=== PATIENT | female | born 1935 | race Caucasian/White ===

== ENCOUNTER → 2018-02-28 | Outpatient (CLI) | payer MEDICARE ==
--- NOTE | 2018-02-28 16:22 | RADIOLOGY REPORT (SQ) ---
EXAM DESCRIPTION: U/S RETROPERITON LTD COMPLETED DATE/TIME: 02/28/2018 4:14 pm REASON FOR STUDY: CHRONIC KIDNEY DISEASE, STAGE 3 (MODERATE) N18.3 CHRONIC KIDNEY DISEASE, STAGE 3 (MODERATE) COMPARISON: None. TECHNIQUE: Dynamic and static grayscale images acquired of the kidneys and bladder and recorded on P ACS. Additional selected color Doppler and spectral images recorded. LIMITATIONS: None. FINDINGS: RIGHT KIDNEY: Normal size. Normal echogenicity. No solid or suspicious masses. No h ydronephrosis. No calcifications. LEFT KIDNEY: Normal size. Normal echogenicity. No solid or suspicious masses. No hydronephrosi s. No calcifications. BLADDER: No masses. OTHER FINDINGS: No other significant finding. IMPRESSION: NORMAL RENAL AND BLADDER ULTRASOUND. TECHNICAL DOCUMENTATION: JOB ID: [id number] [employer]- All Rights Reserved Reading location - IP/workstation name: [email or web address]
== END ==
LOC: RAD 15:10
PROVIDERS: ATTEND Internal Medicine Nephrology
DX: N18.3 Chronic kidney disease, stage 3 (moderate) (principal)
CPT/HCPCS: 76775

== ENCOUNTER → 2018-03-16 | Outpatient (CLI) | payer MEDICARE ==
[2018-03-16 17:46] LABS: ANION GAP 9 (5-19); BLOOD UREA NITROGEN 41 mg/dL (7-20); CALCIUM 10.3 mg/dL (8.4-10.2); CARBON DIOXIDE 25 mmol/L (22-30); CHLORIDE 107 mmol/L (98-107); GLUCOSE 89 mg/dL (75-110); PHOSPHORUS 4.6 mg/dL (2.5-4.5); SODIUM 140.8 mmol/L (137-145)
[2018-03-16 18:04] LABS: POTASSIUM 6.2 mmol/L (3.6-5.0)
[2018-03-18 14:38] LABS: CREATININE URINE 105.5 mg/dL (Not Estab.); MICROALBUMIN URINE 3.4 ug/mL (Not Estab.)
== END ==
LOC: OD 16:43
PROVIDERS: ATTEND Internal Medicine Nephrology
DX: I12.9 Hypertensive chronic kidney disease with stage 1 through stage 4 chronic kidney disease, or unspecified chronic kidney disease (principal); N18.3 Chronic kidney disease, stage 3 (moderate); E55.9 Vitamin D deficiency, unspecified; E87.5 Hyperkalemia
CPT/HCPCS: 36415; 80048; 82043; 82306; 82570; 83970; 84100

== ENCOUNTER → 2018-03-20 | Outpatient (CLI) | payer MEDICARE | LOC: OD 14:11 | PROVIDERS: ATTEND Internal Medicine Nephrology | DX: E87.5 Hyperkalemia (principal) | CPT/HCPCS: 36415; 84132 ==

== ENCOUNTER → 2018-04-05 | Outpatient (CLI) | payer MEDICARE | LOC: OD 10:04 | PROVIDERS: ATTEND Internal Medicine Nephrology | DX: E87.5 Hyperkalemia (principal) | CPT/HCPCS: 36415; 84132 ==

== ENCOUNTER → 2018-10-10 | Outpatient (CLI) | payer MEDICARE ==
[2018-10-10 12:54] LABS: ANION GAP 8 (5-19); BLOOD UREA NITROGEN 39 mg/dL (7-20); CALCIUM 10.2 mg/dL (8.4-10.2); CARBON DIOXIDE 25 mmol/L (22-30); CHLORIDE 108 mmol/L (98-107); GLUCOSE 88 mg/dL (75-110); POTASSIUM 5.1 mmol/L (3.6-5.0); SODIUM 140.6 mmol/L (137-145)
== END ==
LOC: OD 11:11
PROVIDERS: ATTEND Internal Medicine Nephrology
DX: N18.3 Chronic kidney disease, stage 3 (moderate) (principal); E55.9 Vitamin D deficiency, unspecified
CPT/HCPCS: 36415; 80048; 82306

== ENCOUNTER 2019-02-06 11:39 | Observation (INO) | payer MEDICARE ==
--- NOTE | 2019-02-06 12:10 | ER Document Report ---
ED Medical Screen (RME) - General Chief Complaint: Dizziness Stated Complaint: DIZZINESS Time Seen by Provider: 02/06/19 12:08 Primary Care Provider: RUPAL MILLS MD [Primary Care Provider] - Follow up as needed Mode of Arrival: Wheelchair Information source: Patient Notes: 83-year-old female presented to ED for complaint of feeling weak and dizzy with some lymphadenopathy anterior cervical chain. She has a history of high blood pressure arthritis deep vein thrombosis colonoscopy and endoscopy. She does not have any history of any strokes or seizures. She is here with her . She is a former smoker does not smoke at this time does drink socially no drugs and does not work she is 83 years old. She is able to answer all questions appropriately I have greeted and performed a rapid initial assessment of this patient. A comprehensive ED assessment and evaluation of the patient, analysis of test results and completion of medical decision making process will be conducted by an additional ED providers. TRAVEL OUTSIDE OF THE [place] IN LAST 30 DAYS: No - Related Data Allergies/Adverse Reactions: No Known Allergies Allergy (Verified 12/18/13 08:38) Past Medical History - Past Medical History Cardiac Medical History: Reports: Hx Hypertension - ON MEDS Denies: Hx Heart Attack Pulmonary Medical History: Denies: Hx Asthma, Hx Tuberculosis Neurological Medical History: Denies: Hx Cerebrovascular Accident, Hx Seizures Renal/ Medical History: Denies: Hx Peritoneal Dialysis GI Medical History: Denies: Hx Hepatitis, Hx Hiatal Hernia, Hx Ulcer Psychiatric Medical History: Denies: Hx Depression Infectious Medical History: Denies: Hx Hepatitis Past Surgical History: Reports: Hx Orthopedic Surgery - bilateral hips. Denies: Hx Mastectomy, Hx Open Heart Surgery, Hx Pacemaker - Immunizations Hx Diphtheria, Pertussis, Tetanus Vaccination: Yes Physical Exam - Vital signs Vitals: Temp Pulse Resp BP Pulse Ox 97.7 F 76 17 128/57 H 91 L 02/06/19 11:57 02/06/19 11:57 02/06/19 11:57 02/06/19 11:57 02/06/19 11:57 Course - Vital Signs Vital signs: Temp Pulse Resp BP Pulse Ox 97.7 F 76 17 128/57 H 91 L 02/06/19 11:57 02/06/19 11:57 02/06/19 11:57 02/06/19 11:57 02/06/19 11:57 Doctor's Discharge - Discharge Referrals: RUPAL MILLS MD [Primary Care Provider] - Follow up as needed
[2019-02-06 13:05] LABS: ABSOLUTE EOSINOPHILS # (AUTO) 0.1 10^3/uL (0.0-0.6); ABSOLUTE LYMPHOCYTES (AUTO) 0.7 10^3/uL (0.5-4.7); ABSOLUTE MONOCYTES (AUTO) 0.6 10^3/uL (0.1-1.4); ABSOLUTE NEUT (AUTO) 7.6 10^3/uL (1.7-8.2); BASOPHILS % (AUTO) 0.5 % (0-2); EOSINOPHILS % (AUTO) 0.7 % (0-6); HEMATOCRIT 38.7 % (36.0-47.0); HEMOGLOBIN 13.1 g/dL (12.0-15.5); LYMPHOCYTES % (AUTO) 7.9 % (13-45); MEAN CORPUSCULAR HEMOGLOBIN 33.4 pg (27.0-33.4); MEAN CORPUSCULAR HGB CONC 33.8 g/dL (32.0-36.0); MEAN CORPUSCULAR VOLUME 99 fl (80-97); PLATELET COUNT 203 10^3/uL (150-450); RED CELL DISTRIBUTION WIDTH 13.7 % (11.5-14.0); SEGMENTED NEUTROPHILS % (AUTO) 83.9 % (42-78); TOTAL CELLS COUNTED % (AUTO) 100 %
[2019-02-06 13:24] LABS: ALANINE AMINOTRANSFERASE 35 U/L (9-52); ALBUMIN 3.9 g/dL (3.5-5.0); ALKALINE PHOSPHATASE 72 U/L (38-126); ANION GAP 8 (5-19); ASPARTATE AMINO TRANSFERASE 34 U/L (14-36); BILIRUBIN,DIRECT 0.2 mg/dL (0.0-0.4); BILIRUBIN,TOTAL 1.2 mg/dL (0.2-1.3); BLOOD UREA NITROGEN 37 mg/dL (7-20); CALCIUM 10.1 mg/dL (8.4-10.2); CARBON DIOXIDE 27 mmol/L (22-30); CHLORIDE 107 mmol/L (98-107); GLUCOSE 119 mg/dL (75-110); POTASSIUM 5.1 mmol/L (3.6-5.0); SODIUM 141.6 mmol/L (137-145); TOTAL PROTEIN 6.4 g/dL (6.3-8.2)
[2019-02-06 13:35] LABS: CREATINE KINASE MB 1.47 ng/mL (<4.55)
--- NOTE | 2019-02-06 13:37 | RADIOLOGY REPORT (SQ) ---
EXAM DESCRIPTION: CHEST SINGLE VIEW COMPLETED DATE/TIME: 02/06/2019 1:20 pm REASON FOR STUDY: Weak and dizzy COMPARISON: AP chest 12/18/2013 EXAM PARAMETERS: NUMBER OF VIEWS: One view. TECHNIQUE: Single frontal radiographic view of the chest acquired. RADIATION DOSE: NA LIMITATIONS: None. FINDINGS: LUNGS AND PLEURA: No opacities, masses or pneumothorax. No pleural effusion. MEDIASTINUM AND HILAR STRUCTURES: No masses. Contour normal. HEART AND VASCULAR STRUCTURES: Stable mild cardiomegaly BONES: No acute findings. HARDWARE: None in the chest. OTHER: No other significant finding. IMPRESSION: NO ACUTE RADIOGRAPHIC FINDING IN THE CHEST. TECHNICAL DOCUMENTATION: JOB ID: [id number] [employer]- All Rights Reserved Reading location - IP/workstation name: [email or web address]
[2019-02-06 13:41] LABS: TROPONIN I 0.042 ng/mL
[2019-02-06 14:32] LABS: APPEARANCE,URINE SLIGHTLY-CLOUDY; BILIRUBIN,URINE NEGATIVE (NEGATIVE); COLOR,URINE YELLOW; GLUCOSE, URINE NEGATIVE (NEGATIVE); KETONES,URINE NEGATIVE (NEGATIVE); LEUKOCYTE ESTERASE,URINE TRACE (NEGATIVE); NITRITE,URINE NEGATIVE (NEGATIVE); PROTEIN,URINE NEGATIVE (NEGATIVE); URINE SPECIFIC GRAVITY 1.017; UROBILINOGEN,URINE NEGATIVE mg/dL (<2.0)
--- NOTE | 2019-02-06 14:50 | ER Document Report ---
ED General - General Chief Complaint: Dizziness Stated Complaint: DIZZINESS Time Seen by Provider: 02/06/19 12:08 Mode of Arrival: Wheelchair Notes: Patient is a 83-year-old female that presents to the emergency department for chief complaint of lightheadedness and near syncope. Patient started having symptoms this morning, when she stood up, was feeling more lightheaded, she is a poor historian does have some degree of dementia. She states that she had some nausea associated with this but no vomiting. She denies having any chest pain or shortness of breath. She has had episodes like this in the past. She denies any history of coronary artery disease, but does have diabetes and hypertension. She did take all of her blood pressure medications this morning, she is on hydrochlorothiazide as well. She states that she tries to drink plenty of fluids but cannot always keep up. No other complaints at this time, denies any pain at this time. Past Medical History: Diabetes mellitus, hypertension, osteoarthritis, dementia, history of DVT, on Xarelto Past Surgical History: Hip surgery Social History: Former smoker, denies alcohol or drug use. Family History: Reviewed and noncontributory for presenting illness Allergies: Reviewed, see documented allergy list. REVIEW OF SYSTEMS: Other than noted above, the 12 point review of systems was reviewed with the patient and were negative, all pertinent findings are included in the HPI. PHYSICAL EXAMINATION: Vital signs reviewed, nursing noted reviewed. GENERAL: Elderly female, no acute distress. HEAD: Atraumatic, normocephalic. EYES: Eyes appear normal, extraocular movements intact, sclera anicteric, conjunctiva are normal. ENT: nares patent, oropharynx clear without exudates. Moist mucous membranes. NECK: Normal range of motion, supple without lymphadenopathy LUNGS: Breath sounds clear to auscultation bilaterally and equal. No wheezes rales or rhonchi. HEART: Regular rate and rhythm without murmurs ABDOMEN: Soft, nontender, normoactive bowel sounds. No rebound, guarding, or rigidity. No masses appreciated. EXTREMITIES: Nontender, good range of motion, no pitting or edema. NEUROLOGICAL: No focal neurological deficits. Moves all extremities spontaneously Motor and sensory grossly intact on exam. PSYCH: Normal mood, normal affect. SKIN: Warm, Dry, normal turgor, no rashes or lesions noted on exposed skin TRAVEL OUTSIDE OF THE [place] IN LAST 30 DAYS: No - Related Data Allergies/Adverse Reactions: No Known Allergies Allergy (Verified 12/18/13 08:38) Past Medical History - General Information source: Patient - Social History Smoking Status: Former Smoker Family History: Reviewed & Not Pertinent Patient has suicidal ideation: No Patient has homicidal ideation: No - Past Medical History Cardiac Medical History: Reports: Hx Hypertension - ON MEDS Denies: Hx Heart Attack Pulmonary Medical History: Denies: Hx Asthma, Hx Tuberculosis Neurological Medical History: Denies: Hx Cerebrovascular Accident, Hx Seizures Renal/ Medical History: Denies: Hx Peritoneal Dialysis GI Medical History: Denies: Hx Hepatitis, Hx Hiatal Hernia, Hx Ulcer Psychiatric Medical History: Denies: Hx Depression Infectious Medical History: Denies: Hx Hepatitis Past Surgical History: Reports: Hx Orthopedic Surgery - bilateral hips. Denies: Hx Mastectomy, Hx Open Heart Surgery, Hx Pacemaker - Immunizations Hx Diphtheria, Pertussis, Tetanus Vaccination: Yes Hx Pneumococcal Vaccination: 12/19/13 Physical Exam - Vital signs Vitals: Temp Pulse Resp BP Pulse Ox 97.7 F 76 17 128/57 H 91 L 02/06/19 11:57 02/06/19 11:57 02/06/19 11:57 02/06/19 11:57 02/06/19 11:57 Course - Re-evaluation Re-evalutation: Patient seen and examined vital signs reviewed. Laboratory data and imaging were ordered as appropriate for the patient's presenting symptoms and complaint, with consideration of any critical or life threatening conditions that may be associated with their obtained history and exam as noted above. Patient was treated with 500 mL IV fluid bolus Results were reviewed when available and demonstrated slight elevation in her initial troponin at 0.04, they have been negative in the past, repeat was ordered 3 hours from initial and did go up to 0.11, I do not suspect type I NSTEMI in this patient as she has no chest pain at all and her EKG does not demonstrating any concerning signs for acute ischemia. However it was trending upward, and I feel that the patient should be admitted to the hospital and seen by cardiology for further evaluation. The patient was re-evaluated and was stable, had no complaints Evaluation was most consistent with near syncope, elevated troponin Results were discussed with the patient at this point after careful consideration I feel that that patient should be admitted to the hospital. This was discussed with the patient that it is in the best interest for their care to be admitted for further evaluation and management. Patient agreed with this plan of care. A call was placed to the admitted physician, Dr. Easton who graciously accepted the patient onto their service. *Note is created using voice recognition software and may contain spelling, syntax or grammatical errors. Laboratory 02/06/19 02/06/19 02/06/19 12:48 12:48 12:48 WBC 9.0 RBC 3.90 Hgb 13.1 Hct 38.7 MCV 99 H MCH 33.4 MCHC 33.8 RDW 13.7 Plt Count 203 Seg Neutrophils % 83.9 H Lymphocytes % 7.9 L Monocytes % 7.0 Eosinophils % 0.7 Basophils % 0.5 Absolute Neutrophils 7.6 Absolute Lymphocytes 0.7 Absolute Monocytes 0.6 Absolute Eosinophils 0.1 Absolute Basophils 0.0 Sodium 141.6 Potassium 5.1 H Chloride 107 Carbon Dioxide 27 Anion Gap 8 BUN 37 H Creatinine 1.18 Est GFR ( Amer) 53 L Est GFR (Non-Af Amer) 44 L Glucose 119 H Calcium 10.1 Total Bilirubin 1.2 Direct Bilirubin 0.2 Neonat Total Bilirubin Not Reportable Neonat Direct Bilirubin Not Reportable Neonat Indirect Bili Not Reportable AST 34 ALT 35 Alkaline Phosphatase 72 CK-MB (CK-2) 1.47 Troponin I 0.042 Total Protein 6.4 Albumin 3.9 Urine Color Urine Appearance Urine pH Ur Specific [place] Urine Protein Urine Glucose (UA) Urine Ketones Urine Blood Urine Nitrite Urine Bilirubin Urine Urobilinogen Ur Leukocyte Esterase Urine WBC (Auto) Urine RBC (Auto) U Hyaline Cast (Auto) Squamous Epi Cells Auto Urine Mucus (Auto) Urine Ascorbic Acid 02/06/19 02/06/19 14:00 16:55 WBC RBC Hgb Hct MCV MCH MCHC RDW Plt Count Seg Neutrophils % Lymphocytes % Monocytes % Eosinophils % Basophils % Absolute Neutrophils Absolute Lymphocytes Absolute Monocytes Absolute Eosinophils Absolute Basophils Sodium Potassium Chloride Carbon Dioxide Anion Gap BUN Creatinine Est GFR ( Amer) Est GFR (Non-Af Amer) Glucose Calcium Total Bilirubin Direct Bilirubin Neonat Total Bilirubin Neonat Direct Bilirubin Neonat Indirect Bili AST ALT Alkaline Phosphatase CK-MB (CK-2) Troponin I 0.112 Total Protein Albumin Urine Color YELLOW Urine Appearance SLIGHTLY-CLOUDY Urine pH 5.0 Ur Specific [place] 1.017 Urine Protein NEGATIVE Urine Glucose (UA) NEGATIVE Urine Ketones NEGATIVE Urine Blood NEGATIVE Urine Nitrite NEGATIVE Urine Bilirubin NEGATIVE Urine Urobilinogen NEGATIVE Ur Leukocyte Esterase TRACE H Urine WBC (Auto) 2 Urine RBC (Auto) 1 U Hyaline Cast (Auto) 10 Squamous Epi Cells Auto 3 Urine Mucus (Auto) RARE Urine Ascorbic Acid NEGATIVE Chest X-Ray 02/06/19 12:09 IMPRESSION: NO ACUTE RADIOGRAPHIC FINDING IN THE CHEST. - Vital Signs Vital signs: Temp Pulse Resp BP Pulse Ox 98.3 F 59 L 16 118/58 L 100 02/06/19 23:26 02/06/19 23:26 02/06/19 23:26 02/06/19 23:26 02/06/19 23:26 - Laboratory Result Diagrams: 02/06/19 12:48 02/06/19 12:48 Laboratory results interpreted by me: 02/06/19 02/06/19 02/06/19 12:48 12:48 14:00 MCV 99 H Seg Neutrophils % 83.9 H Lymphocytes % 7.9 L Potassium 5.1 H BUN 37 H Est GFR ( Amer) 53 L Est GFR (Non-Af Amer) 44 L Glucose 119 H Ur Leukocyte Esterase TRACE H - EKG Interpretation by Me Additional EKG results interpreted by me: EKG demonstrates sinus rhythm with a ventricular rate of 70 bpm, normal axis, QTC 461 ms, no ST elevation, this is compared to prior EKG from 12/19/2013, without significant change. Discharge - Discharge Clinical Impression: Near syncope, Elevated troponin Condition: Stable Disposition: ADMITTED INPATIENT Admitting Provider: Rustam (Hospitalist) Unit Admitted: Telemetry
[2019-02-06] MEDS ORDERED: NORMAL SALINE 500 ML IV ONE (15:13)
--- NOTE | 2019-02-06 16:38 | EKG REPORT ---
SEVERITY:- BORDERLINE ECG - SINUS RHYTHM PROBABLE LEFT ATRIAL ABNORMALITY LOW VOLTAGE IN FRONTAL LEADS : Confirmed by: Ko Gonzalez MD 06-Feb-2019 16:38:21
[2019-02-06] MEDS ORDERED: ONDANSETRON HCL INJ/PF 4 MG/2 ML SDV IV PRN (18:30)
[2019-02-06] MEDS ORDERED: ACETAMINOPHEN 325 MG TABLET PO PRN (18:30)
[2019-02-06] MEDS ORDERED: NORMAL SALINE 1000 ML 1,000 ML IV PRN (18:30)
--- NOTE | 2019-02-06 18:47 | PDOC H&P ---
History of Present Illness Admission Date/PCP: 02/06/19 18:21 RUPAL MILLS MD Patient complains of: Dizziness History of Present Illness: EUSEBIA SANDY is a 83 year old female history of hypertension, history of DVT on Xarelto, dementia on donezepil came to the emergency room with complaints of lightheadedness dizziness for the last 2 days. Denies any history of falls. Denies any blurred vision. Denies any headaches denies any nausea denies any vomitings. She has occasional constipation. Denies any cough cold denies any upper respiratory tract symptoms denies any chest pains. Work-up in the ER shows initial troponin of 0.04 and repeat troponin is 0.112 medical consult was called for possible admission. At the time of examination patient is as ymptomatic. Patient received IV fluids in the ER. Past Medical History Cardiac Medical History: Reports: Hypertension - ON MEDS Denies: Myocardial Infarction Pulmonary Medical History: Denies: Asthma, Tuberculosis Neurological Medical History: Denies: Seizures GI Medical History: Denies: Hepatitis, Hiatal Hernia Psychiatric Medical History: Denies: Depression Hematology: Denies: Anemia, Sickle Cell Disease Past Surgical History Past Surgical History: Reports: Orthopedic Surgery - bilateral hips Denies: Amputation, Mastectomy, Pacemaker Social History Information Source: Patient Lives with: Spouse/Significant other Smoking Status: Former Smoker Frequency of Alcohol Use: Occasional Hx Recreational Drug Use: No Hx Prescription Drug Abuse: No - Advance Directive Resuscitation Status: Full Code Family History Family History: Reviewed & Not Pertinent Parental Family History Reviewed: Yes - Family history of hypertension. Children Family History Reviewed: Yes Sibling(s) Family History Reviewed.: Yes Medication/Allergy Home Medications: Rivaroxaban [Xarelto 15 mg Tablet] 15 mg PO DAILY 12/18/13 Triamterene/Hydrochlorothiazid [Triamterene-Hctz 37.5-25 mg Cp] 1 each PO DAILY 12/18/13 Cholecalciferol (Vitamin D3) [Vitamin D3 1000 Unit Tablet] 1,000 unit PO DAILY 02/06/19 Donepezil HCl [Aricept] 10 mg PO QHS 02/06/19 Glucosamine HCl 3,000 mg PO QHS 02/06/19 Losartan Potassium [Cozaar 50 mg Tablet] 50 mg PO DAILY 02/06/19 Omeprazole 20 mg PO DAILYP PRN 02/06/19 Allergies/Adverse Reactions: No Known Allergies Allergy (Verified 12/18/13 08:38) Review of Systems Constitutional: ABSENT: fever(s), headache(s), weakness Eyes: ABSENT: visual disturbances Ears: ABSENT: hearing changes Nose, Mouth, and Throat: ABSENT: sore throat Cardiovascular: ABSENT: chest pain, dyspnea on exertion, edema, orthropnea, palpitations Respiratory: ABSENT: cough, hemoptysis Gastrointestinal: PRESENT: constipation. ABSENT: abdominal pain, diarrhea, hematemesis, hematochezia, nausea, vomiting Genitourinary: ABSENT: dysuria, hematuria Musculoskeletal: ABSENT: joint swelling Neurological: PRESENT: dizziness Psychiatric: ABSENT: anxiety, depression, homidical ideation, suicidal ideation Physical Exam Vital Signs: Temp Pulse Resp BP Pulse Ox 97.7 F 66 17 128/54 H 98 02/06/19 11:57 02/06/19 13:14 02/06/19 14:01 02/06/19 14:01 02/06/19 14:01 Intake & Output 02/05/19 02/06/19 02/07/19 06:59 06:59 06:59 Weight 58.4 kg General appearance: PRESENT: no acute distress Head exam: PRESENT: atraumatic Eye exam: PRESENT: PERRLA Mouth exam: PRESENT: moist, tongue midline Neck exam: ABSENT: carotid bruit, JVD, lymphadenopathy, thyromegaly Respiratory exam: PRESENT: clear to auscultation edna. ABSENT: rales, rhonchi, wheezes Cardiovascular exam: PRESENT: RRR. ABSENT: diastolic murmur, rubs, systolic murmur GI/Abdominal exam: PRESENT: normal bowel sounds, soft. ABSENT: distended, guarding, mass, organolmegaly, rebound, tenderness Rectal exam: PRESENT: deferred Extremities exam: PRESENT: full ROM. ABSENT: calf tenderness, clubbing, pedal edema Neurological exam: PRESENT: alert, awake, oriented to person, oriented to place, oriented to time, oriented to situation, CN II-XII grossly intact. ABSENT: motor sensory deficit Psychiatric exam: PRESENT: appropriate affect, normal mood. ABSENT: homicidal ideation, suicidal ideation Results Laboratory Results: 02/06/19 12:48 02/06/19 12:48 02/06/19 02/06/19 02/06/19 12:48 12:48 14:00 WBC 9.0 RBC 3.90 Hgb 13.1 Hct 38.7 MCV 99 H MCH 33.4 MCHC 33.8 RDW 13.7 Plt Count 203 Seg Neutrophils % 83.9 H Lymphocytes % 7.9 L Monocytes % 7.0 Eosinophils % 0.7 Basophils % 0.5 Absolute Neutrophils 7.6 Absolute Lymphocytes 0.7 Absolute Monocytes 0.6 Absolute Eosinophils 0.1 Absolute Basophils 0.0 Sodium 141.6 Potassium 5.1 H Chloride 107 Carbon Dioxide 27 Anion Gap 8 BUN 37 H Creatinine 1.18 Est GFR ( Amer) 53 L Est GFR (Non-Af Amer) 44 L Glucose 119 H Calcium 10.1 Total Bilirubin 1.2 AST 34 ALT 35 Alkaline Phosphatase 72 Total Protein 6.4 Albumin 3.9 Urine Color YELLOW Urine Appearance SLIGHTLY-CLOUDY Urine pH 5.0 Ur Specific [place] 1.017 Urine Protein NEGATIVE Urine Glucose (UA) NEGATIVE Urine Ketones NEGATIVE Urine Blood NEGATIVE Urine Nitrite NEGATIVE Ur Leukocyte Esterase TRACE H Urine WBC (Auto) 2 Urine RBC (Auto) 1 02/06/19 02/06/19 12:48 16:55 CK-MB (CK-2) 1.47 Troponin I 0.042 0.112 Impressions: Chest X-Ray 02/06/19 12:09 IMPRESSION: NO ACUTE RADIOGRAPHIC FINDING IN THE CHEST. Assessment and Plan - Diagnosis (1) Elevated troponin Is this a current diagnosis for this admission?: Yes Plan: 02/06/2019-patient came in with complaints of dizziness upon and was 0.042 and repeat troponin was 0.112 patient is chest pain-free. EKGs are negative for acute changes. Patient is going to be placed in the hospital under observation status. Serial cardiac enzymes EKG is going to be requested. Patient is already on Xarelto plan is to continue Xarelto. Start on aspirin 81 mg p.o. daily, atorvastatin 5 mg bedtime lipid panel was requested for tomorrow morning. Patient was placed on oxygen 2 L via nasal cannula. GI prophylaxis was requested. cause of elevated troponin is unknown at this point. She denies any chest pains. (2) Near syncope Is this a current diagnosis for this admission?: Yes Plan: 02/06/2019-patient came in with complaints of dizziness and near syncope. Plan to do the CT head without contrast. Fall precautions are requested. Patient is complaining of syncope spells when she is getting from sitting to standing position. Most likely is vasovagal syncope. Patient is started on normal saline at 50 cc/h. (3) HTN (hypertension) Is this a current diagnosis for this admission?: No Plan: 02/06/2019-patient has history of chronic hypertension blood pressure is 128/54 in the ER. Patient is on losartan and also on triamterene/hydrochlorothiazide at home. plan is to continue losartan and hold triamterene/hydrochlorothiazide. (4) DVT (deep venous thrombosis) Is this a current diagnosis for this admission?: No Plan: 02/06/2019-patient has history of DVTs on Xarelto. Plan to continue Xarelto during the hospital stay. (5) CRI (chronic renal insufficiency) Is this a current diagnosis for this admission?: No Plan: 02/06/2019-patient creatinine is 1.18 we do not have the previous creatinine available. Patient received IV fluids in the emergency room and also she was placed on normal saline at 50 cc/h plan to recheck the labs tomorrow. (6) Dementia Is this a current diagnosis for this admission?: No Plan: 02/06/2019-patient has history of dementia and on hospital at home plan is to continue the medication during the hospital stay. - Time Time Spent with patient: 25-34 minutes Medications reviewed and adjusted accordingly: Yes Anticipated discharge: Home
[2019-02-06] MEDS: ASPIRIN 81 MG TABLET, CHEWABLE PO SCH (19:30)
[2019-02-06 19:43] LABS: CREATINE KINASE MB 1.87 ng/mL (<4.55)
[2019-02-06 19:50] LABS: TROPONIN I 0.154 ng/mL
[2019-02-06] MEDS: FAMOTIDINE 20 MG TABLET PO SCH (21:36)
[2019-02-06] MEDS ORDERED: DONEPEZIL HCL 5 MG TABLET PO SCH (22:00)
[2019-02-06] MEDS ORDERED: ATORVASTATIN CALCIUM 10 MG TABLET PO SCH (22:00)
[2019-02-06] MEDS ORDERED: (PENDING PHARMACY ID) (Donepezil Hcl [Aricept] 10 MG) PO SCH (22:00)
[2019-02-07 02:08] LABS: CREATINE KINASE MB 1.87 ng/mL (<4.55)
[2019-02-07 02:11] LABS: TROPONIN I 0.204 ng/mL
--- NOTE | 2019-02-07 04:57 | RADIOLOGY REPORT (SQ) ---
EXAM: CT head without IV contrast CLINICAL DATA: syncope TECHNICAL DATA: Multiple axial CT images of the brain were performed followed by sagittal and coronal reconstructed images. The CT study is performed according to ALARA (as low as reasonably achievable) or ALARA/IMAGE GENTLY, with automatic adjustment of mA and/or kV according to patient size. Performed on: 02/06/2019 at 7:15 PM Comparisons: None. FINDINGS: There is no evidence of mass, acute mass effect or midline shift. There are no acute extra-axial fluid collections. There is no evidence of acute intracranial hemorrhage. The cerebral sulci and ventricles are prominent consistent with mild cerebral volume loss. There are scattered patchy areas of decreased subcortical and periventricular attenuation most consistent with mild chronic microangiopathy. There is no significant mucosal thickening of the paranasal sinuses. There are mild atherosclerotic calcifications along the cavernous carotid arteries. The mastoid air cells are clear. The orbital contents are grossly unremarkable. No acute osseous abnormalities are identified. No focal soft tissue abnormalities are identified. IMPRESSION: 1. There is no evidence of acute intracranial pathology. 2. Mild age-related cerebral volume loss with findings most compatible with chronic microangiopathy.
[2019-02-07 07:37] LABS: ABSOLUTE EOSINOPHILS # (AUTO) 0.2 10^3/uL (0.0-0.6); ABSOLUTE LYMPHOCYTES (AUTO) 1.1 10^3/uL (0.5-4.7); ABSOLUTE MONOCYTES (AUTO) 0.6 10^3/uL (0.1-1.4); ABSOLUTE NEUT (AUTO) 3.5 10^3/uL (1.7-8.2); BASOPHILS % (AUTO) 0.5 % (0-2); EOSINOPHILS % (AUTO) 4.1 % (0-6); HEMATOCRIT 34.8 % (36.0-47.0); HEMOGLOBIN 11.7 g/dL (12.0-15.5); MEAN CORPUSCULAR HEMOGLOBIN 33.1 pg (27.0-33.4); MEAN CORPUSCULAR HGB CONC 33.7 g/dL (32.0-36.0); MEAN CORPUSCULAR VOLUME 98 fl (80-97); RED BLOOD COUNT 3.54 10^6/uL (3.72-5.28); RED CELL DISTRIBUTION WIDTH 13.6 % (11.5-14.0); SEGMENTED NEUTROPHILS % (AUTO) 64.4 % (42-78); TOTAL CELLS COUNTED % (AUTO) 100 %; WHITE BLOOD COUNT 5.4 10^3/uL (4.0-10.5)
--- NOTE | 2019-02-07 07:44 | EKG REPORT ---
SEVERITY:- BORDERLINE ECG - SINUS RHYTHM PROBABLE LEFT ATRIAL ABNORMALITY CONSIDER ANTERIOR INFARCT : Confirmed by: Ko Gonzalez MD 07-Feb-2019 07:43:38
[2019-02-07 07:54] LABS: PLATELET COUNT 117 10^3/uL (150-450)
[2019-02-07 07:55] LABS: ALANINE AMINOTRANSFERASE 28 U/L (9-52); ALBUMIN 3.1 g/dL (3.5-5.0); ALKALINE PHOSPHATASE 56 U/L (38-126); ANION GAP 7 (5-19); ASPARTATE AMINO TRANSFERASE 29 U/L (14-36); BILIRUBIN,DIRECT 0.2 mg/dL (0.0-0.4); BILIRUBIN,TOTAL 1.1 mg/dL (0.2-1.3); BLOOD UREA NITROGEN 34 mg/dL (7-20); CALCIUM 9.5 mg/dL (8.4-10.2); CARBON DIOXIDE 25 mmol/L (22-30); CHLORIDE 109 mmol/L (98-107); CHOLESTEROL 155.36 mg/dL (0-200); CREATINE KINASE 48 U/L (30-135); GLUCOSE 95 mg/dL (75-110); POTASSIUM 4.3 mmol/L (3.6-5.0); SODIUM 140.5 mmol/L (137-145); TOTAL PROTEIN 5.4 g/dL (6.3-8.2); TRIGLYCERIDES 64 mg/dL (<150)
[2019-02-07 08:05] LABS: CREATINE KINASE MB 1.87 ng/mL (<4.55); TROPONIN I 0.166 ng/mL
[2019-02-07 08:06] LABS: DIRECT LDL 56 mg/dL (<100)
[2019-02-07] MEDS: FAMOTIDINE 20 MG TABLET PO SCH (09:45)
[2019-02-07] MEDS: ASPIRIN 81 MG TABLET, CHEWABLE PO SCH (09:45)
[2019-02-07] MEDS ORDERED: LOSARTAN POTASSIUM 50 MG TABLET PO SCH (10:00)
[2019-02-07] MEDS ORDERED: DOCUSATE SODIUM 100 MG/10 ML UDC PO SCH (10:00)
[2019-02-07] MEDS ORDERED: RIVAROXABAN 15 MG TABLET PO SCH (10:00)
[2019-02-07 11:09] VITALS: BP 117/47
--- NOTE | 2019-02-07 16:06 | PDOC DISCHARGE SUMMARY ---
General - Admit/Disc Date/PCP Admission Date/Primary Care Provider: 02/06/19 18:21 RUPAL MILLS MD Discharge Date: 02/07/19 - Discharge Diagnosis (1) Elevated troponin Is this a current diagnosis for this admission?: Yes Summary: Never had any chest pain. Troponins peaked at 0.2 and then trended down without any intervention. She has an appointment with her career development facilitator in a couple of weeks. Cardiology recommended sending her on a beta-constance instead of her other antihypertensive, which was a combination triamterene HCTZ medication. (2) Near syncope Is this a current diagnosis for this admission?: Yes Summary: From dehydration. She got some IV fluids and has not had any further episodes since. Head CT was negative. Discontinued diuretic as noted above. - Additional Information Resuscitation Status: Full Code Discharge Diet: Cardiac Discharge Activity: Activity As Tolerated Prescriptions: Metoprolol Succinate [Toprol Xl 25 mg Tab.sr] 12.5 mg PO DAILY #30 tab.sr.24h Home Medications: Rivaroxaban [Xarelto 15 mg Tablet] 15 mg PO QHS 12/18/13 Cholecalciferol (Vitamin D3) [Vitamin D3 1000 Unit Tablet] 1,000 unit PO DAILY 02/06/19 Donepezil HCl [Aricept] 10 mg PO QHS 02/06/19 Glucosamine HCl 3,000 mg PO QHS 02/06/19 Losartan Potassium [Cozaar 50 mg Tablet] 50 mg PO QHS 02/06/19 Omeprazole 20 mg PO QAM 02/06/19 Metoprolol Succinate [Toprol Xl 25 mg Tab.sr] 12.5 mg PO DAILY #30 tab.sr.24h 02/07/19 History of Present Illness History of Present Illness: EUSEBIA SANDY is a 83 year old female history of hypertension, history of DVT on Xarelto, dementia on donezepil came to the emergency room with complaints of lightheadedness dizziness for the last 2 days. Denies any history of falls. Denies any blurred vision. Denies any headaches denies any nausea denies any vomitings. She has occasional constipation. Denies any cough cold denies any upper respiratory tract symptoms denies any chest pains. Work-up in the ER shows initial troponin of 0.04 and repeat troponin is 0.112 medical consult was called for possible admission. At the time of examination patient is asymptomatic. Patient received IV fluids in the ER. Hospital Course Hospital Course: Troponins trended up to 0.2 and then began trending down without any intervention. She was taken off HCTZ and triamterene, was given some IV fluids, and has been asymptomatic. No more dizzy spells. She is never had any chest pain. No prior cardiac history. She goes to her 's career development facilitator and that person prescribes her blood pressure medicine for her. She has an appointment in a couple weeks. She was put on a low dose of a beta-constance and instead of her triamterene and HCTZ. Her labs and her examination were reassuring she was discharged in good condition. Physical Exam Vital Signs: Temp Pulse Resp BP Pulse Ox 97.8 F 61 18 117/47 L 98 02/07/19 11:07 02/07/19 11:07 02/07/19 11:07 02/07/19 11:07 02/07/19 11:07 Intake & Output 02/06/19 02/07/19 02/08/19 06:59 06:59 06:59 Intake Total 740 Balance 740 Weight 58.4 kg General appearance: PRESENT: no acute distress, cooperative, disheveled Respiratory exam: PRESENT: clear to auscultation edna, symmetrical, unlabored. ABSENT: accessory muscle use, crackles, prolonged expiratory phas, rhonchi, tachypnea, wheezes Cardiovascular exam: PRESENT: RRR, +S1, +S2 Pulses: PRESENT: normal carotid pulses Vascular exam: PRESENT: normal capillary refill GI/Abdominal exam: PRESENT: normal bowel sounds, soft. ABSENT: distended, guarding, rebound, tenderness Extremities exam: ABSENT: clubbing, pedal edema Musculoskeletal exam: PRESENT: normal inspection. ABSENT: deformity Neurological exam: PRESENT: alert, awake, oriented to person, oriented to place, oriented to time, oriented to situation Psychiatric exam: PRESENT: appropriate affect, normal mood Skin exam: PRESENT: dry, warm Results Laboratory Results: 02/07/19 07:20 02/07/19 07:20 02/07/19 02/07/19 02/07/19 07:20 07:20 07:20 WBC 5.4 RBC 3.54 L Hgb 11.7 L Hct 34.8 L MCV 98 H MCH 33.1 MCHC 33.7 RDW 13.6 Plt Count 117 L Seg Neutrophils % 64.4 Lymphocytes % 20.0 Monocytes % 11.0 Eosinophils % 4.1 Basophils % 0.5 Absolute Neutrophils 3.5 Absolute Lymphocytes 1.1 Absolute Monocytes 0.6 Absolute Eosinophils 0.2 Absolute Basophils 0.0 Sodium 140.5 Potassium 4.3 Chloride 109 H Carbon Dioxide 25 Anion Gap 7 BUN 34 H Creatinine 0.98 Est GFR ( Amer) > 60 Est GFR (Non-Af Amer) 54 L Glucose 95 Calcium 9.5 Magnesium 2.0 Total Bilirubin 1.1 AST 29 ALT 28 Alkaline Phosphatase 56 Total Protein 5.4 L Albumin 3.1 L Triglycerides 64 Cholesterol 155.36 LDL Cholesterol Direct 56 VLDL Cholesterol 13.0 HDL Cholesterol 95 TSH 1.59 02/06/19 02/06/19 02/06/19 12:48 16:55 18:50 Creatine Kinase 36 CK-MB (CK-2) 1.47 Troponin I 0.042 0.112 02/06/19 02/07/19 02/07/19 18:50 01:29 01:29 Creatine Kinase 42 CK-MB (CK-2) 1.87 1.87 Troponin I 0.154 0.204 02/07/19 02/07/19 07:20 07:20 Creatine Kinase 48 CK-MB (CK-2) 1.87 Troponin I 0.166 Impressions: Head CT 02/06/19 00:00 IMPRESSION: 1. There is no evidence of acute intracranial pathology. 2. Mild age-related cerebral volume loss with findings most compatible with chronic microangiopathy. Chest X-Ray 02/06/19 12:09 IMPRESSION: NO ACUTE RADIOGRAPHIC FINDING IN THE CHEST. Qualifiers - * PATIENT BEING DISCHARGED WITH ANY OF THE FOLLOWING DIAGNOSIS: No Acute Heart Failure Is this a Heart Failure Patient?: No Plan Time Spent: Less than 30 Minutes
== END 2019-02-07 12:09 | disposition home or self-care (01) ==
LOC: ER 11:39 → INTOOBSV 18:21 → EH 18:21 → 4N 19:52
PROVIDERS: ADMIT Internal Medicine; ATTEND Internal Medicine
DX: R79.89 Other specified abnormal findings of blood chemistry (principal); E86.0 Dehydration; R55 Syncope and collapse; F03.90 Unspecified dementia, unspecified severity, without behavioral disturbance, psychotic disturbance, mood disturbance, and anxiety; I10 Essential (primary) hypertension; Z86.718 Personal history of other venous thrombosis and embolism; Z79.01 Long term (current) use of anticoagulants; Z87.891 Personal history of nicotine dependence
CPT/HCPCS: 93005 ×2; 99285; 96360; 36415 ×2; 82553 ×2; 82550 ×2; 83735; 84443; 85025 ×2; 80053 ×2; 81001; 84484 ×2; 83036; 80061; 71045; 70450; 93010; G0378 ×3; A9270 ×8; J3490; J7040

== ENCOUNTER 2020-05-17 05:56 | Emergency (ER) | payer MEDICARE ==
[2020-05-17] MEDS ORDERED: NORMAL SALINE 250 ML IV ONE (08:00)
[2020-05-17 08:59] LABS: ABSOLUTE BASOPHILS # (AUTO) 0.1 10^3/uL (0.0-0.2); ABSOLUTE LYMPHOCYTES (AUTO) 0.9 10^3/uL (0.5-4.7); ABSOLUTE MONOCYTES (AUTO) 0.5 10^3/uL (0.1-1.4); ABSOLUTE NEUT (AUTO) 5.5 10^3/uL (1.7-8.2); EOSINOPHILS % (AUTO) 0.6 % (0-6); HEMATOCRIT 35.4 % (36.0-47.0); LYMPHOCYTES % (AUTO) 12.6 % (13-45); MEAN CORPUSCULAR HEMOGLOBIN 34.6 pg (27.0-33.4); MEAN CORPUSCULAR HGB CONC 33.8 g/dL (32.0-36.0); MEAN CORPUSCULAR VOLUME 102 fl (80-97); MONOCYTES % (AUTO) 6.7 % (3-13); PLATELET COUNT 160 10^3/uL (150-450); RED BLOOD COUNT 3.46 10^6/uL (3.72-5.28); RED CELL DISTRIBUTION WIDTH 12.7 % (11.5-14.0); SEGMENTED NEUTROPHILS % (AUTO) 79.1 % (42-78); TOTAL CELLS COUNTED % (AUTO) 100 %
[2020-05-17 09:15] LABS: BLOOD UREA NITROGEN 34 mg/dL (7-20); CALCIUM 9.4 mg/dL (8.4-10.2); GLUCOSE 91 mg/dL (75-110)
[2020-05-17 09:16] LABS: ALBUMIN 3.8 g/dL (3.5-5.0); ALKALINE PHOSPHATASE 67 U/L (38-126); ANION GAP 6 (5-19); ASPARTATE AMINO TRANSFERASE 76 U/L (14-36); BILIRUBIN,TOTAL 0.9 mg/dL (0.2-1.3); CARBON DIOXIDE 27 mmol/L (22-30); CHLORIDE 106 mmol/L (98-107); POTASSIUM 4.8 mmol/L (3.6-5.0); TOTAL PROTEIN 6.1 g/dL (6.3-8.2)
--- NOTE | 2020-05-17 09:16 | RADIOLOGY REPORT (SQ) ---
EXAM DESCRIPTION: L SPINE WHOLE IMAGES COMPLETED DATE/TIME: 05/17/2020 7:43 am REASON FOR STUDY: pain COMPARISON: None. NUMBER OF VIEWS: Five views including obliques. TECHNIQUE: AP, lateral, oblique, and sacral radiographic images acquired of the lumbar spine. LIMITATIONS: None. FINDINGS: MINERALIZATION: Osteopenia. SEGMENTATION: Normal. No transitional anatomy. ALIGNMENT: Normal. VERTEBRAE: There is no acute fracture or loss of vertebral body height. Multilevel spondylosis with marginal osteophytes. Subchondral sclerosis at the endplates. DISCS: Degenerative disc disease with loss of intervertebral disc heights. POSTERIOR ELEMENTS: Facet arthropathy particularly at L5-S1. Pedicles and facets are intact. No par s defect or posterior arch defects. HARDWARE: None in the spine. PARASPINAL SOFT TISSUES: Normal. PELVIS: Intact as visualized. No fractures or worrisome bone lesions. SI joints intact. OTHER: No other significant finding. IMPRESSION: No acute fracture or dislocation of the lumbar spine. Multilevel spondylosis, degenerat [place] disc disease and facet arthropathy. TECHNICAL DOCUMENTATION: JOB ID: [id number] [employer]- All Rights Reserved Reading location - IP/workstation name: [email or web address]
[2020-05-17] MEDS ORDERED: NORMAL SALINE 500 ML IV ONE (09:27)
[2020-05-17 10:44] LABS: APPEARANCE,URINE CLEAR; BILIRUBIN,URINE NEGATIVE (NEGATIVE); COLOR,URINE YELLOW; GLUCOSE, URINE NEGATIVE (NEGATIVE); KETONES,URINE NEGATIVE (NEGATIVE); LEUKOCYTE ESTERASE,URINE TRACE (NEGATIVE); NITRITE,URINE NEGATIVE (NEGATIVE); PROTEIN,URINE NEGATIVE (NEGATIVE); URINE SPECIFIC GRAVITY 1.015; UROBILINOGEN,URINE NEGATIVE mg/dL (<2.0)
--- NOTE | 2020-05-17 11:18 | ER Document Report ---
Entered by BRYAN ANDERSON SCRIBE 05/17/20 0804 Acting as scribe for:CHRISTINE LANGFORD MD ED General - General Chief Complaint: Back Pain Stated Complaint: LOWER BACK PAIN Time Seen by Provider: 05/17/20 06:37 Primary Care Provider: OLIMPIA SCRUGGS MD [Primary Care Provider] - Follow up as needed Mode of Arrival: Ambulatory Information source: Patient Notes: This 85-year-old female patient presents to the emergency department today with complaints of urinary frequency and left lower back pain. Patient mentions that she goes outside in the garden daily and she thinks she might have overdone it. at bedside mentions that the patient "felt faint when she woke up this morning just like the last time she had a UTI [place]". Patient states her symptoms today do feel like previous UTIs. Patient states she has been on meloxicam for the last year for back pain. Patient denies dysuria, fevers, or vomiting. TRAVEL OUTSIDE OF THE [place] IN LAST 30 DAYS: No - Related Data Allergies/Adverse Reactions: No Known Allergies Allergy (Verified 12/18/13 08:38) Home Medications: Xarelto, Doneprezil, Losartin, Triamterene, Meloxicam, Om eprazole, Vit D, Glucosamine Chondroitin Past Medical History - General Information source: Patient - Social History Smoking Status: Former Smoker Cigarette use (# per day): No Frequency of alcohol use: Occasional Drug Abuse: None Lives with: Family Family History: Reviewed & Not Pertinent Patient has homicidal ideation: No - Past Medical History Cardiac Medical History: Reports: Hx Atrial Fibrillation, Hx Hypertension - ON MEDS Past Surgical History: Reports: Hx Orthopedic Surgery - bilateral hips - Immunizations Hx Diphtheria, Pertussis, Tetanus Vaccination: Yes Hx Pneumococcal Vaccination: 12/19/13 Review of Systems - Review of Systems Constitutional: denies: Fever EENT: No symptoms reported Cardiovascular: No symptoms reported Respiratory: No symptoms reported Gastrointestinal: denies: Vomiting Genitourinary: See HPI, Frequency. denies: Dysuria Female Genitourinary: No symptoms reported Musculoskeletal: See HPI, Back pain Skin: No symptoms reported Hematologic/Lymphatic: No symptoms reported Neurological/Psychological: No symptoms reported -: Yes All other systems reviewed and negative Physical Exam - Vital signs Vitals: Temp 98.5 F 05/17/20 05:59 - Notes Notes: Physical Exam: General: Alert, appears well. HEENT: Normocephalic. Atraumatic. PERRL. Extraocular movements intact. Oropharynx clear. Neck: Supple. Non-tender. Respiratory: No respiratory distress. Clear and equal breath sounds bilaterally. Cardiovascular: Regular rate and rhythm. Abdominal: Normal Inspection. Non-tender. No distension. Normal Bowel Sounds. Back: No gross abnormalities. Extremities: Moves all four extremities. Upper extremities: Normal inspection. Normal ROM. Lower extremities: Normal inspection. No edema. Normal ROM. Neurological: Normal cognition. AAOx4. Normal speech. Psychological: Normal affect. Normal Mood. Skin: Warm. Dry. Normal color. No rash. Course - Re-evaluation Re-evalutation: 05/17/20 11:13 Patient reports that she is pain-free at this time not having any pain in her back or in her abdomen. Denies any nausea or vomiting or urinary burning or discomfort. On further details patient reports that her pain is been subtle off and on over the last several days to the point that she came to the emergency room today. Patient has no prior history of kidney stones that she knows of and states that the pain was bilateral in the flanks. She thought she was having a urinary tract infection because there was some frequency we did a lumbar sacral plain film x-ray series because patient has known arthritis in her back and indeed she does based on report showing multilevel arthropathy and spondylosis and facet joint arthropathy arthropathy. No acute fractures were seen or any lytic lesions. We had a discussion whether or not patient could have perhaps passed a stone because there is a few red cells which are within the normal range of seen 2 red cells per high-power field on the urinalysis. Otherwise there is no evidence for a urinary tract infection and the amount of red cells present now is within normal limits. I recommended the patient continue her usual medications including her meloxicam which she takes for her chronic back pain. We did discuss doing a CT scan of her back looking at her kidney ureter bladder system and we decided that at this point since she is pain-free that we would not do any further radiation. - Vital Signs Vital signs: Temp Pulse Resp BP Pulse Ox 98.5 F 115 H 14 139/69 H 100 05/17/20 06:09 05/17/20 06:09 05/17/20 06:09 05/17/20 06:09 05/17/20 06:09 - Laboratory Result Diagrams: 05/17/20 08:40 05/17/20 08:40 Laboratory results interpreted by me: 05/17/20 05/17/20 05/17/20 08:40 08:40 10:11 RBC 3.46 L Hct 35.4 L MCV 102 H MCH 34.6 H Lymph % (Auto) 12.6 L Seg Neutrophils % 79.1 H BUN 34 H Est GFR (MDRD) Non-Af 52 L AST 76 H ALT 57 H Total Protein 6.1 L Urine Blood SMALL H Ur Leukocyte Esterase TRACE H 05/17/20 11:16 Urinalysis was clear not showing any signs of a urinary tract infection with a trace leukocyte esterase and small amount of blood with 2 red blood cells per high-powered field. Nitrite negative - Diagnostic Test Radiology reviewed: Image reviewed, Reports reviewed Radiology results interpreted by me: 05/17/20 11:15 LS-spine series shows no fracture no lytic lesions multilevel arthropathy facet joint disease and spondylosis Discharge - Discharge Clinical Impression: Back pain Condition: Stable Disposition: HOME, SELF-CARE Instructions: Low Back Pain ([facility]) Additional Instructions: Low Back Pain Three out of every four people will have an episode of disabling back pain during their lifetime. Most commonly the pain is due to straining of the muscles and ligaments in the low back. Usual treatment includes: (1) Rest on a firm surface. Avoid lying on your stomach. (2) Ice pack the painful area. After a few days, gentle heat may be used intermittently to relax the area, or ice packs can be continued. (3) Medication may be needed -- muscle relaxers and antiinflammatory medicines are commonly used. (4) As the back improves, exercises are prescribed to strengthen the back and abdominal muscles. Your doctor will advise you on the proper care for your back at each stage in your recovery. You may be better in a few days -- or healing may take several weeks. If new symptoms of a "herniated disc" (radiation of pain, numbness, or tingling down the back of the leg or weakness in the leg) occur, you should be re-examined. Further testing may be necessary. Continue your same medications as you are currently taking at this time follow- up with your primary care physician if there is any problems. Referrals: OLIMPIA SCRUGGS MD [Primary Care Provider] - Follow up as needed I personally performed the services described in the documentation, reviewed and edited the documentation which was dictated to the scribe in my presence, and it accurately records my words and actions.
[2020-05-17 11:31] VITALS: BP 122/47
== END 2020-05-17 11:38 | disposition home or self-care (01) ==
LOC: ER 05:56
DX: M47.817 Spondylosis without myelopathy or radiculopathy, lumbosacral region (principal); R31.9 Hematuria, unspecified; R35.0 Frequency of micturition; I10 Essential (primary) hypertension; I48.91 Unspecified atrial fibrillation; Z87.891 Personal history of nicotine dependence; Z87.440 Personal history of urinary (tract) infections; Z79.1 Long term (current) use of non-steroidal anti-inflammatories (NSAID); Z79.01 Long term (current) use of anticoagulants; Z79.899 Other long term (current) drug therapy
CPT/HCPCS: 99284; 96360; 36415; 85025; 80053; 81001; 72110; J7050; J7040